=== PATIENT | female | born 1970 | race Caucasian/White ===

== ENCOUNTER → 2019-11-13 09:36 | Outpatient (BNVA) | payer BC, MEDICARE, SELFPAY | PROVIDERS: Family Provider Nurse Practitioner; PCP Nurse Practitioner Family; Visit Provider Nurse Practitioner Family | DX: E11.9 Type 2 diabetes mellitus without complications (principal) | CPT/HCPCS: 83036 ==

== ENCOUNTER → 2020-04-29 15:07 | Outpatient (BNVA) | payer BC, MEDICARE, SELFPAY | PROVIDERS: Family Provider Nurse Practitioner; PCP Nurse Practitioner Family; Visit Provider Nurse Practitioner Family | DX: I10 Essential (primary) hypertension (principal); E11.9 Type 2 diabetes mellitus without complications | CPT/HCPCS: 80053; 80061; 83036; 84439; 84443 ==

== ENCOUNTER 2020-06-21 10:12 | Outpatient (CLI) | payer BC, MEDICARE, SELFPAY ==
--- NOTE | 2020-06-21 11:00 | MM_ITS ---
WS: [id number] Bilateral screening digital mammogram, 06/21/2020 Clinical Data: screening Comparison: 12/22/2016, 09/18/2016, 06/30/2011. Findings: The breast parenchymal pattern shows fat replacement. No spiculated masses or clustered calcification s are seen. There are no secondary signs of carcinoma. MM/[id number] Impression: 1. Negative bilateral mammogram unchanged. 2. Recommend annual screening mammograms. BIRADS: 1-Negative FOLLOW UP: 1 Year Follow-up The CAD stock checker was used.
== END 2020-06-21 10:13 | disposition home or self-care (01) ==
PROVIDERS: PCP Nurse Practitioner Family; Visit Provider Nurse Practitioner Family
DX: Z12.31 Encounter for screening mammogram for malignant neoplasm of breast (principal)
CPT/HCPCS: 77067

== ENCOUNTER → 2020-11-01 16:49 | Outpatient (BNVA) | payer BC, MEDICARE, SELFPAY | PROVIDERS: PCP Nurse Practitioner Family; Visit Provider Surgery | DX: Z20.822 Contact with and (suspected) exposure to COVID-19 (principal); K42.0 Umbilical hernia with obstruction, without gangrene | CPT/HCPCS: 87635 ==

== ENCOUNTER 2020-11-06 06:28 | Day surgery (SDC) | payer BC, MEDICARE, SELFPAY ==
[2020-11-05 15:09] VITALS: BMI 41.1
[2020-11-06] VITALS (16 sets, daily range): BP systolic 142–193; BP diastolic 87–131; PULSE 80–98; RESP 13–22; TEMP 36.6–37; O2SAT 90–99
--- NOTE | 2020-11-06 07:45 | ANES.PREANE2 ---
Pre-Anesthetic Assessment Pre-Anesthetic Assessment: Height/Weight: Height 1.63 m Weight 108.862 kg Temp Pulse Resp BP Pulse Ox 98.3 F 88 18 142/87 99 11/06/20 07:43 11/06/20 07:43 11/06/20 07:43 11/06/20 07:43 11/06/20 07:43 Preop Diagnosis: Incarcerated umbilical hernia Proposed Procedure: Operation Date: 11/06/20 08:40 Proposed Procedures p Laparoscopic Umbilical Hernia Repair w/ Mesh poss open [id number] K42.0(Not Applicable) - Roberth Coelho MD Was Beta Dylon taken within 24 hours: N/A Was Clonidine taken within 24 hours: N/A Social: Social History: No alcohol and No tobacco Exam: Pre-Anes Outpt Exam: alert, oriented x 3, clear to auscultation bilaterally and regular rate & rhythm Airway: Submandibular: WNL Cervical ROM: WNL MP: 2 Dentition: Chipped Additional comments: very poor CV/HEM: CV/HEM: HTN Metabolic: Metabolic: DM Musc/skel: Musc/skel: Weakness Comments: MS-wheelchair bound Anesthetic Plan: ASA status: 3 Anesthesia: General Risk of > 500 ml blood loss (7ml/kg in children): No PFSH Anesthesia PFSH: Medical History Diabetes mellitus Hypertension Hypertriglyceridemia MS (multiple sclerosis) Umbilical hernia, incarcerated Surgical History H/O tubal ligation Status post laparoscopic cholecystectomy Family History Mother Cancer ovarian and kidney Diabetes Father Hypertension Grandfather Diabetes Grandmother Diabetes Social History Smoking and tobacco status: never smoked Alcohol intake: current Alcohol intake frequency: few times a month Data Anesthesia Cardiac Studies: No Data to Display
[2020-11-06] MEDS: sodium chloride 0.9% 1,000 ML 30 ML IV (07:58)
[2020-11-06 08:10] LABS: Glucose Point of Care 224 mg/dL (70-110)
--- NOTE | 2020-11-06 08:33 | W.PM.OPSUD ---
Surgery/Procedure H&P Update DATE OF PROCEDURE: November 06, 2020 DATE H&P PERFORMED: 10/25/20 H&P UPDATE INFORMATION: I have reviewed H&P completed within last 30 days, I have examined patient prior to procedure and No changes to prior documentation PREOP DIAGNOSIS: Incarcerated umbilical hernia PLANNED PROCEDURE: Operation Date: 11/06/20 08:40 Proposed Procedures p Laparoscopic Umbilical Hernia Repair w/ Mesh poss open [id number] K42.0(Not Applicable) - Roberth Coelho MD
--- NOTE | 2020-11-06 09:29 | PM.OP ---
Operative Report Date of procedure: November 06, 2020 Pre-op Diagnosis: Incarcerated umbilical hernia Post-op Diagnosis: Incarcerated umbilical hernia containing omentum measuring 5 x 5 cm Procedure Done: Laparoscopic repair of incarcerated umbilical hernia with Proceed mesh measuring 15 x 15 cm Pathology: none sent Surgeon: Roberth Coelho Anesthesia: General Condition: stable Disposition: PACU Procedure: The patient was taken to the Operating Room and was intubated under general anesthesia after the antibiotic had been administered. The abdomen was prepped and draped in a sterile manner. Using a 15 blade, a 2-cm incision was made in the left upper quadrant in the anterior axillary line and pneumoperitoneum was created using Verres needle. A 10 mm Marsha port was placed and 15 mm of pneumoperitoneum was created after a 10 mm 30? scope had been introduced. 5 mm port was placed at the level of the umbilicus and in the left lower quadrant under direct visualization. Using a combination of electrocautery and scissors the peritoneum in the midline was taken down and the omental fat within the hernial sac was reduced. A spinal needle was introduced through the abdominal wall and the edges of the hernial defect were marked and measured 5x 5 cm. A 5 cm margin was marked on the abdominal wall on the outer edge of the hernial defect. 15 x 15 cm Proceed mesh was cut in an oval shape and 4 separate 2-0 Mccracken-Oli sutures were placed at the 4 corners of the mesh. A 5 mm camera was introduced and the mesh was introduced through the 10 mm port. Grannie needle was passed through the stab incisions and used to grasp the free ends of the Mccracken-Oli sutures which were then used to pull the mesh up against the abdominal wall; 5 mm SecurStraps were placed 1 cm apart along the edge of the mesh to hold it against the abdominal wall. 20 of saline mixed with 20 cc of Exparel mixed with .5% Marcaine was infiltrated in the midclavicular line under laparoscopic visualization for a TAP block. At the end of this, it was noted that the mesh was well positioned over the hernial defect. All ports were removed under direct visualization and there was no bleeding noted from the port sites. The external oblique aponeurosis was approximated at this port site using figure of eight 0 Vicryl suture. The subcutaneous tissue was approximated using 3-0 Vicryl sutures. The skin at all 3 port sites was closed using subcuticular 4-0 Monocryl suture. The stab incisions and the 3 port sites were covered with Dermabond. Abdominal binder was placed at the end of the procedure. The patient was extubated and transferred to recovery room in stable condition.
[2020-11-06] MEDS: labetalol 5 mg/mL SDV 20mL IVP ×2 (09:40→09:46)
[2020-11-06] MEDS: fentaNYL 50 mcg/mL INJ 2mL IVP (09:47)
[2020-11-06] MEDS: hyDRALAzine 20 mg/mL INJ 1 mL 5 MG IVP (09:59)
[2020-11-06] MEDS: morphine 4 mg/mL SDV 1 mL IVP (11:06)
--- NOTE | 2020-11-06 15:17 | ANE.PACU2 ---
Inpatient post-anesthesia follow up: Airway intact: Yes Vital signs: Temperature 97.8 F Pulse Rate 98 Respiratory Rate 18 Blood Pressure 145/91 Pulse Oximetry 96 Oxygen Delivery Me thod Room Air Oxygen Flow Rate 3 Fraction of Inspir ed Oxygen Hydration adequate: Yes Nausea and vomiting: No Pain level: 1 Mental status: Baseline
== END 2020-11-06 13:00 | disposition home or self-care (01) ==
PROVIDERS: PCP Nurse Practitioner Family; Visit Provider Surgery
PROC: 0WQF4ZZ Repair Abdominal Wall, Percutaneous Endoscopic Approach (ICD-10-PCS; CPT 49653; principal; 2020-11-06 08:40)
DX: K42.0 Umbilical hernia with obstruction, without gangrene (principal); I10 Essential (primary) hypertension; E11.9 Type 2 diabetes mellitus without complications; Z99.3 Dependence on wheelchair; Z79.84 Long term (current) use of oral hypoglycemic drugs; I05.0 Rheumatic mitral stenosis
CPT/HCPCS: 49653; 36416; 82962; C9290; J0360; J0690; J1100; J2250; J2270; J2405; J2704; J2710; J3010; J3490; J7030

== ENCOUNTER → 2020-11-29 11:41 | Outpatient (BNVA) | payer BC, MEDICARE, SELFPAY | PROVIDERS: PCP Nurse Practitioner Family; Visit Provider Nurse Practitioner Family | DX: G35 Multiple sclerosis (principal); L03.039 Cellulitis of unspecified toe; E11.9 Type 2 diabetes mellitus without complications; S91.209A Unspecified open wound of unspecified toe(s) with damage to nail, initial encounter; X58.XXXA Exposure to other specified factors, initial encounter | CPT/HCPCS: 83036 ==

== ENCOUNTER → 2021-05-20 15:52 | Outpatient (BNVA) | payer MEDICARE, SELFPAY | PROVIDERS: PCP Nurse Practitioner Family; Visit Provider Nurse Practitioner Family | DX: E11.9 Type 2 diabetes mellitus without complications (principal); E78.1 Pure hyperglyceridemia; I10 Essential (primary) hypertension | CPT/HCPCS: 80053; 80061; 83036; 84439; 84443; 85025 ==

== ENCOUNTER → 2021-11-14 09:13 | Outpatient (BNVA) | payer OTHER, MEDICARE, SELFPAY | PROVIDERS: PCP Nurse Practitioner Family; Visit Provider Nurse Practitioner Family | DX: I10 Essential (primary) hypertension (principal); E11.9 Type 2 diabetes mellitus without complications | CPT/HCPCS: 80053; 80061; 83036 ==

== ENCOUNTER → 2022-03-02 14:16 | Outpatient (BNVA) | payer MEDICARE, SELFPAY | PROVIDERS: PCP Nurse Practitioner Family; Visit Provider Nurse Practitioner Family | DX: E11.9 Type 2 diabetes mellitus without complications (principal) | CPT/HCPCS: 83036 ==

== ENCOUNTER 2022-06-04 06:00 | Outpatient (RCR) | payer OTHER, MEDICARE, SELFPAY | END 2022-07-04 23:59 | disposition home or self-care (01) | LOC: GOT 06:00 | PROVIDERS: PCP Nurse Practitioner Family; Visit Provider Nurse Practitioner Family | DX: G35 Multiple sclerosis (principal); R29.6 Repeated falls; E11.21 Type 2 diabetes mellitus with diabetic nephropathy; H47.013 Ischemic optic neuropathy, bilateral | CPT/HCPCS: 97167; 97542 ==

== ENCOUNTER → 2022-06-12 10:06 | Outpatient (BNVA) | payer OTHER, MEDICARE, SELFPAY | PROVIDERS: PCP Nurse Practitioner Family; Visit Provider Nurse Practitioner Family | DX: E78.1 Pure hyperglyceridemia (principal); E11.9 Type 2 diabetes mellitus without complications | CPT/HCPCS: 80053; 80061; 83036 ==

== ENCOUNTER → 2022-11-27 16:58 | Outpatient (BNVA) | payer OTHER, MEDICARE, SELFPAY | PROVIDERS: PCP Nurse Practitioner Family; Visit Provider Nurse Practitioner Family | DX: I10 Essential (primary) hypertension (principal); E11.9 Type 2 diabetes mellitus without complications; Z68.35 Body mass index [BMI] 35.0-35.9, adult; G51.0 Bell's palsy | CPT/HCPCS: 80053; 80061; 83036; 83721; 85025 ==

== ENCOUNTER → 2023-02-19 10:35 | Outpatient (BNVA) | payer OTHER, MEDICARE, SELFPAY | PROVIDERS: PCP Nurse Practitioner Family; Visit Provider Family Medicine | DX: E11.9 Type 2 diabetes mellitus without complications (principal) | CPT/HCPCS: 83036 ==

== ENCOUNTER → 2024-01-04 12:32 | Outpatient (BNVA) | payer OTHER, MEDICARE, SELFPAY | PROVIDERS: PCP Nurse Practitioner Family; Visit Provider Nurse Practitioner Family | DX: E11.9 Type 2 diabetes mellitus without complications (principal); R30.0 Dysuria; N39.0 Urinary tract infection, site not specified; R31.9 Hematuria, unspecified | CPT/HCPCS: 80053; 80061; 81000; 82043; 83036; 85025; 87070; 87086; 87205 ==

== ENCOUNTER 2024-03-03 09:58 | Outpatient (CLI) | payer MEDICARE, SELFPAY ==
--- NOTE | 2024-03-03 11:30 | MM_ITS ---
WS: [id number] BILATERAL SCREENING DIGITAL TOMOSYNTHESIS MAMMOGRAM WITH CAD HISTORY: Z12.39 - Encounter for other screening for malignant neop... COMPARISON: 06/21/2020, 12/22/2016 Bilateral CC and MLO views with tomosynthesis and synthetic mammography submitted. Computer aided det ection analyzed. Breast composition: There are scattered areas of fibroglandular density. No suspicious masses, microc alcifications or architectural distortion. Numerous benign calcifications in each breast. MM/[id number] IMPRESSION: BI-RADS: 2-Benign FOLLOW UP: 1 Year Follow-up
== END 2024-03-03 09:59 | disposition home or self-care (01) ==
LOC: RAD 09:58
PROVIDERS: PCP Nurse Practitioner Family; Visit Provider Nurse Practitioner Family
DX: Z12.39 Encounter for other screening for malignant neoplasm of breast (principal); R92.323 Mammographic fibroglandular density, bilateral breasts; R92.1 Mammographic calcification found on diagnostic imaging of breast
CPT/HCPCS: 77063; 77067

== ENCOUNTER 2024-03-24 10:08 | Outpatient (CLI) | payer MEDICARE, SELFPAY ==
--- NOTE | 2024-03-24 10:12 | XR_ITS ---
WS: [id number] Left shoulder, 2 views, 03/24/2024 Clinical Data: M25.512 - Pain in left shoulder Comparison: None. Findings: No fractures or dislocations are seen. The AC joint is normal. The adjacent left clavicle, left scapu la and ribs are normal. The soft tissues are unremarkable. XR/XR shoulder LT min 2V* [id number] Impression: Negative left shoulder.
--- NOTE | 2024-03-24 10:12 | XR_ITS ---
WS: [id number] Left elbow, 3 views, 03/24/2024 Clinical Data: M25.522 - Pain in left elbow Comparison: None. Findings: No fractures or dislocations are seen. The radial head is normal. The soft tissues are unremarkable. There is a spur of the coronoid process of the ulna and of the medial humeral condyle. 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
== END 2024-03-24 10:09 | disposition home or self-care (01) ==
LOC: RAD 10:09
PROVIDERS: PCP Nurse Practitioner Family; Visit Provider Nurse Practitioner Family
DX: M25.522 Pain in left elbow (principal); M25.512 Pain in left shoulder
CPT/HCPCS: 73030; 73080

== ENCOUNTER → 2024-03-31 14:11 | Outpatient (BNVA) | payer MEDICARE, SELFPAY | PROVIDERS: PCP Nurse Practitioner Family; Visit Provider Nurse Practitioner Family | DX: E11.9 Type 2 diabetes mellitus without complications (principal) | CPT/HCPCS: 83036 ==

== ENCOUNTER → 2024-04-17 08:21 | Outpatient (BNVA) | payer MEDICARE, SELFPAY | PROVIDERS: PCP Nurse Practitioner Family; Visit Provider Family Medicine | DX: I10 Essential (primary) hypertension (principal); D50.9 Iron deficiency anemia, unspecified; E11.9 Type 2 diabetes mellitus without complications; E78.1 Pure hyperglyceridemia; R79.0 Abnormal level of blood mineral | CPT/HCPCS: 80053; 80061; 83735; 85025 ==

== ENCOUNTER → 2024-06-09 10:14 | Outpatient (BNVA) | payer MEDICARE, SELFPAY | PROVIDERS: PCP Nurse Practitioner Family; Visit Provider Student in an Organized Health Care Education/Training Program | DX: M25.522 Pain in left elbow (principal); M25.512 Pain in left shoulder; M19.012 Primary osteoarthritis, left shoulder | CPT/HCPCS: 73030; 73080; 99204 ==

== ENCOUNTER → 2024-08-04 11:36 | Outpatient (BNVA) | payer MEDICARE, SELFPAY | PROVIDERS: PCP Nurse Practitioner Family; Visit Provider Student in an Organized Health Care Education/Training Program | DX: M25.512 Pain in left shoulder (principal); M19.012 Primary osteoarthritis, left shoulder | CPT/HCPCS: 20610; 77002; J3301 ==

== ENCOUNTER → 2024-09-15 07:53 | Outpatient (BNVA) | payer MEDICARE, SELFPAY | PROVIDERS: PCP Nurse Practitioner Family; Visit Provider Thoracic Surgery (Cardiothoracic Vascular Surgery) | DX: L89.152 Pressure ulcer of sacral region, stage 2 (principal); L89.312 Pressure ulcer of right buttock, stage 2; L89.611 Pressure ulcer of right heel, stage 1 | CPT/HCPCS: 87070; 87176; 87205; 97597; 99203; A6210; A6220 ==

== ENCOUNTER 2024-09-22 10:32 | Outpatient (CLI) | payer MEDICARE, SELFPAY ==
--- NOTE | 2024-09-22 13:30 | USCV_ITS ---
Simran Whittaker Age: 54 Gender: F : 1970 Exam Date: 09/22/2024 10:50 Ordering Phys: Chloe Youngblood NP Technologist: RUDY Exam Location: [facility] – [place] Indication: HISTORY: PROCEDURES: Bilateral duplex Venous Insufficiency study of the Deep and Superficial systems was carried out according to normal protocol with the patient in supine positon for deep system and dependent position for the superficial system. FINDINGS: The veins were found to be easily compressible on both sides. No significant reflux Normal caliber veins CONCLUSIONS No evidence of DVT in the above-mentioned identifiable veins. No Significant venous reflux bilaterally Patent normal caliber superficial veins bilaterally Dr Harjeet Jung MD [facility] (Electronically Signed) Final Date: 25 September 2024 20:47 S
== END 2024-09-22 10:33 | disposition home or self-care (01) ==
LOC: RAD 10:34
PROVIDERS: PCP Nurse Practitioner Family; Visit Provider Nurse Practitioner Family
DX: I87.2 Venous insufficiency (chronic) (peripheral) (principal); E11.52 Type 2 diabetes mellitus with diabetic peripheral angiopathy with gangrene; E11.621 Type 2 diabetes mellitus with foot ulcer; L89.611 Pressure ulcer of right heel, stage 1; L89.152 Pressure ulcer of sacral region, stage 2; L89.312 Pressure ulcer of right buttock, stage 2
CPT/HCPCS: 93970; 97597; A6210; A6220; A6248

== ENCOUNTER 2024-09-29 11:26 | Outpatient (CLI) | payer MEDICARE, SELFPAY ==
--- NOTE | 2024-09-29 12:15 | USR_ITS ---
PROCEDURE INFORMATION: Exam: US Duplex Bilateral Lower Extremity Arteries Exam date and time: 09/29/2024 11:55 AM Age: 54 years old Clinical indication: Other: Stricture; Additional info: I77.1 - stricture of artery, needs lulu included bilateral. TECHNIQUE: Imaging protocol: Real-time ultrasound scan of the arteries of the bilateral lower extremities with 2-D solis scale, color Doppler flow and spectral waveform analysis. Images documented and saved. COMPARISON: No relevant prior studies available. FINDINGS: Right common femoral artery: No occlusion or significant stenosis. Normal multiphasic waveform. Peak systolic velocity: 104 cm/s. Imaged iliac artery demonstrates no occlusion or significant stenosis and normal multiphasic waveforms. Right superficial femoral artery: No occlusion or significant stenosis. Normal multiphasic waveform. Peak systolic velocity: Proximal 99 cm/s, mid 82 cm/s, distal 91 cm/s. Right popliteal artery: No occlusion or significant stenosis. Normal multiphasic waveform. Peak systolic velocity 75 cm/s. Right FIRST MATE and dorsalis pedis artery: No occlusion or significant stenosis. Normal multiphasic waveform. Peak systolic velocity: FIRST MATE 89 cm/s, dorsalis pedis artery 41 cm/s. Left common femoral artery: No occlusion or significant stenosis. Normal multiphasic waveform. Peak systolic velocity: 116 cm/s. Imaged iliac artery demonstrates no occlusion or significant stenosis and normal multiphasic waveforms. Left superficial femoral artery: No occlusion or significant stenosis. Normal multiphasic waveform. Peak systolic velocity: Proximal 80 cm/s, mid 103 cm/s, distal 75 cm/s. Left popliteal artery: No occlusion or significant stenosis. Normal multiphasic waveform. Peak systolic velocity: 65 cm/s. Left FIRST MATE and dorsalis pedis artery: No occlusion or significant stenosis. Normal multiphasic waveform. Peak systolic velocity: FIRST MATE 80 cm/s, dorsalis pedis artery 50 cm/s. LULU: Right LULU is 0.86 and left LULU 0.87 indicating borderline/mild PAD without dominant stenosis or occlusion. US/CV arterial duplex [facility] [id number] IMPRESSION: 1. No significant stenosis or occlusion. 2. Right LULU is 0.86 and left LULU 0.87 indicating borderline/mild PAD without dominant stenosis or occlusion.
== END 2024-09-29 11:27 | disposition home or self-care (01) ==
LOC: RAD 11:27
PROVIDERS: PCP Nurse Practitioner Family; Visit Provider Nurse Practitioner Family
DX: I77.1 Stricture of artery (principal); R93.89 Abnormal findings on diagnostic imaging of other specified body structures; E11.52 Type 2 diabetes mellitus with diabetic peripheral angiopathy with gangrene; E11.621 Type 2 diabetes mellitus with foot ulcer; L89.611 Pressure ulcer of right heel, stage 1; L89.152 Pressure ulcer of sacral region, stage 2; L89.312 Pressure ulcer of right buttock, stage 2
CPT/HCPCS: 93925; 97597; A6210; A6220

== ENCOUNTER → 2024-10-06 09:51 | Outpatient (BNVA) | payer MEDICARE, SELFPAY | PROVIDERS: PCP Nurse Practitioner Family; Visit Provider Thoracic Surgery (Cardiothoracic Vascular Surgery) | DX: E11.52 Type 2 diabetes mellitus with diabetic peripheral angiopathy with gangrene (principal); E11.621 Type 2 diabetes mellitus with foot ulcer; L89.611 Pressure ulcer of right heel, stage 1; L89.152 Pressure ulcer of sacral region, stage 2; L89.312 Pressure ulcer of right buttock, stage 2 | CPT/HCPCS: 97597; A6210; A6220; A6248 ==

== ENCOUNTER → 2024-10-13 09:54 | Outpatient (BNVA) | payer MEDICARE, SELFPAY | PROVIDERS: PCP Nurse Practitioner Family; Visit Provider Thoracic Surgery (Cardiothoracic Vascular Surgery) | DX: E11.52 Type 2 diabetes mellitus with diabetic peripheral angiopathy with gangrene (principal); E11.621 Type 2 diabetes mellitus with foot ulcer; L89.611 Pressure ulcer of right heel, stage 1; L89.152 Pressure ulcer of sacral region, stage 2 | CPT/HCPCS: 11042; 97597; A6021; A6207; A6250 ==

== ENCOUNTER → 2024-10-20 09:25 | Outpatient (BNVA) | payer MEDICARE, SELFPAY | PROVIDERS: PCP Nurse Practitioner Family | DX: E11.52 Type 2 diabetes mellitus with diabetic peripheral angiopathy with gangrene (principal); E11.621 Type 2 diabetes mellitus with foot ulcer; L89.613 Pressure ulcer of right heel, stage 3; L89.152 Pressure ulcer of sacral region, stage 2; S80.11XA Contusion of right lower leg, initial encounter; W22.8XXA Striking against or struck by other objects, initial encounter | CPT/HCPCS: 97597; A6021; A6210; A6212; A6250 ==

== ENCOUNTER → 2024-11-03 09:34 | Outpatient (BNVA) | payer MEDICARE, SELFPAY | PROVIDERS: PCP Nurse Practitioner Family; Visit Provider Thoracic Surgery (Cardiothoracic Vascular Surgery) | DX: E11.52 Type 2 diabetes mellitus with diabetic peripheral angiopathy with gangrene (principal); E11.621 Type 2 diabetes mellitus with foot ulcer; L89.613 Pressure ulcer of right heel, stage 3; L97.522 Non-pressure chronic ulcer of other part of left foot with fat layer exposed; L89.152 Pressure ulcer of sacral region, stage 2; S80.11XD Contusion of right lower leg, subsequent encounter; W22.8XXD Striking against or struck by other objects, subsequent encounter | CPT/HCPCS: 11042; 97597; A6021 ==

== ENCOUNTER → 2024-11-17 09:33 | Outpatient (BNVA) | payer MEDICARE, SELFPAY | PROVIDERS: PCP Nurse Practitioner Family; Visit Provider Thoracic Surgery (Cardiothoracic Vascular Surgery) | DX: E11.52 Type 2 diabetes mellitus with diabetic peripheral angiopathy with gangrene (principal); E11.621 Type 2 diabetes mellitus with foot ulcer; L89.613 Pressure ulcer of right heel, stage 3; S80.11XD Contusion of right lower leg, subsequent encounter; W22.8XXD Striking against or struck by other objects, subsequent encounter; Z09 Encounter for follow-up examination after completed treatment for conditions other than malignant neoplasm | CPT/HCPCS: 97597 ==

== ENCOUNTER → 2024-12-01 09:28 | Outpatient (BNVA) | payer MEDICARE, SELFPAY | PROVIDERS: PCP Nurse Practitioner Family; Visit Provider Thoracic Surgery (Cardiothoracic Vascular Surgery) | DX: E11.52 Type 2 diabetes mellitus with diabetic peripheral angiopathy with gangrene (principal); E11.621 Type 2 diabetes mellitus with foot ulcer; L89.613 Pressure ulcer of right heel, stage 3; Z09 Encounter for follow-up examination after completed treatment for conditions other than malignant neoplasm | CPT/HCPCS: 97597; A6021; A6212 ==

== ENCOUNTER → 2025-01-19 14:05 | Outpatient (BNVA) | payer MEDICARE, SELFPAY | PROVIDERS: PCP Nurse Practitioner Family; Visit Provider Nurse Practitioner Family | DX: E11.9 Type 2 diabetes mellitus without complications (principal); E55.9 Vitamin D deficiency, unspecified | CPT/HCPCS: 80053; 80061; 82043; 82306; 83036; 83721; 85025 ==

== ENCOUNTER → 2025-04-27 09:00 | Outpatient (BNVA) | payer MEDICARE, SELFPAY | PROVIDERS: PCP Nurse Practitioner Family; Visit Provider Nurse Practitioner Family | DX: E11.9 Type 2 diabetes mellitus without complications (principal) | CPT/HCPCS: 83036 ==